=== PATIENT | female | born 1970 | race Caucasian/White ===

== ENCOUNTER 2020-12-05 08:25 | Day surgery (SDC) | payer OTHER ==
[2020-12-03 13:02] LABS: COVID AG,FIA SOURCE NASOPHARYNGEAL
[~2020-12-05] VITALS: Ht 172.7 cm; Wt 85.9 kg
[~2020-12-05 08:25] MED LIST: KETOROLAC TROMETHAMINE 0.5% 5 ML OPHTHALMIC SOLUTION ONE; MOXIFLOXACIN HCL 0.5% 3 ML OPHTHALMIC SOLUTION ONE; PHENYLEPHRINE HCL 2.5% 2 ML OPHTHALMIC SOLUTION ONE; RINGERS SOLUTION,LACTATED 500 ML IV ONE; TROPICAMIDE 1% 2 ML OPHTHALMIC SOLUTION ONE
[2020-12-05] MEDS ORDERED: POVIDONE-IODINE 10% 15 ML SOLUTION UD TP ONE (08:26)
[2020-12-05] MEDS ORDERED: MIDAZOLAM HCL 2 MG/2 ML VIAL IVP ONE (08:26)
[2020-12-05] MEDS ORDERED: LIDOCAINE/PF 1% 2 ML VIAL IM ONE (08:26)
[2020-12-05] MEDS ORDERED: CHONDR SULF A SOD/HYALURONATE 1.05 ML KIT IO ONE (08:26)
[2020-12-05] MEDS ORDERED: FentaNYL CITRATE PF 100 MCG/2 ML VIAL IVP ONE (08:26)
[2020-12-05] MEDS ORDERED: EPINEPHrine 1:1,000 [1 MG/ML] AMP IM ONE (08:26)
[2020-12-05] MEDS ORDERED: RINGERS SOLUTION,LACTATED 500 ML IV ONE (09:00)
[2020-12-05] MEDS: KETOROLAC TROMETHAMINE 0.5% 5 ML OPHTHALMIC SOLUTION OS SCH ×3 (09:09→09:20)
[2020-12-05] MEDS: MOXIFLOXACIN HCL 0.5% 3 ML OPHTHALMIC SOLUTION OS SCH ×3 (09:09→09:20)
[2020-12-05] MEDS: TROPICAMIDE 1% 2 ML OPHTHALMIC SOLUTION OS SCH ×3 (09:09→09:20)
[2020-12-05] MEDS: PHENYLEPHRINE HCL 2.5% 2 ML OPHTHALMIC SOLUTION OS SCH ×3 (09:10→09:20)
== END 2020-12-05 11:50 | disposition home or self-care (01) ==
LOC: SURGERY 08:25
PROVIDERS: ATTEND Ophthalmology
DX: H25.12 Age-related nuclear cataract, left eye (principal); F17.210 Nicotine dependence, cigarettes, uncomplicated; G89.29 Other chronic pain; M54.9 Dorsalgia, unspecified; E66.01 Morbid (severe) obesity due to excess calories; Z79.899 Other long term (current) drug therapy; Z98.890 Other specified postprocedural states
CPT/HCPCS: 66984; 87426; 93005; A9575; C9803; J0171; J2250; J3010; J3490; J7120; V2632